=== PATIENT | female | born 1950 ===

== ENCOUNTER 2018-08-30 13:28 | Emergency (ER) | payer OTHER ==
[2018-08-30 13:47] VITALS: BP 148/79; PULSE 79; RESP 20; TEMP 97.7; O2SAT 99
--- NOTE | 2018-08-30 14:56 | C.PDOC ---
History Of Present Illness 68 year old female, with known past medical history of arthritis and osteoporosis, presents to the ED for evaluation of worsening left knee swelling over the past two weeks. Patient has undergone several arthroscopic evaluations in her left knee, and has been advised to follow up with an orthopedist for a total knee replacement. Patient presents to the ED today requesting an XR of the area for her doctor. Patient denies fever, chills, shortness of breath, or recent trauma to the site. Time Seen by Provider: 08/30/18 14:04 Chief Complaint (Nursing): Lower Extremity Problem/Injury History Per: Patient History/Exam Limitations: no limitations Onset/Duration Of Symptoms: Other (two weeks) Current Symptoms Are (Timing): Worse Additional History Per: Patient - Knee Description Of Injury: denies: Fell, Struck With Object, Struck Against Object Past Medical History Reviewed: Historical Data, Nursing Documentation, Vital Signs Vital Signs: Last Vital Signs Temp 97.7 F 08/30/18 13:45 Pulse 79 08/30/18 13:45 Resp 20 08/30/18 13:45 BP 148/79 08/30/18 13:45 Pulse Ox 99 08/30/18 13:45 - Medical History PMH: Hypothyroidism Surgical History: No Surg Hx Family History: States: Unknown Family Hx - Social History Hx Alcohol Use: Yes Hx Substance Use: No - Immunization History Hx Tetanus Toxoid Vaccination: Yes Hx Influenza Vaccination: Yes Hx Pneumococcal Vaccination: Yes Review Of Systems Constitutional: Negative for: Fever, Chills Musculoskeletal: Positive for: Other (left knee swelling, atraumatic ) Physical Exam - Physical Exam Appears: Non-toxic, No Acute Distress, Other (petite female ) Skin: Normal Color, Warm, Dry Extremity: Tenderness (left knee), No Calf Tenderness, Capillary Refill (less than 2 seconds ), Other (left knee is markedly enlarged, effusion to medial distal knee ) Pulses: Left Dorsalis Pedis: Normal, Right Dorsalis Pedis: Normal Neurological/Psych: Normal Speech, Normal Cognition ED Course And Treatment O2 Sat by Pulse Oximetry: 99 (on RA) Pulse Ox Interpretation: Normal Medical Decision Making Medical Decision Making: Progress: Tylenol PO given. Patient is resting comfortably, showing no signs of distress and is stable for discharge. Patient is advised to follow up with orthopedist where she can undergo XR, and that there is no need for additional radiation today. Disposition - Disposition Referrals: Earl Reeves MD [Staff Provider] - Fransisco Powell MD [Staff Provider] - Disposition: HOME/ ROUTINE Disposition Time: 14:54 Condition: GOOD Additional Instructions: Please follow up with orthopedist. Take Ibuprofen or Tylenol for pain. Cold compresses to knee several times a day. Prescriptions: Acetaminophen [Tylenol 325mg tab] 650 mg PO Q4 #50 tab Instructions: Osteoarthritis (DC) Forms: [employer] ([place]), General Discharge Instructions - Clinical Impression Clinical Impression: Chronic pain of left knee - PA / [employer]UST[employer]UC[employer] / Resident Statement MD/DO has reviewed & agrees with the documentation as recorded. - Scribe Statement The provider has reviewed the documentation as recorded by the Scribe (Grace Lundberg) All medical record entries made by the Scribe were at my direction and personally dictated by me. I have reviewed the chart and agree that the record accurately reflects my personal performance of the history, physical exam, medical decision making, and the department course for this patient. I have also personally directed, reviewed, and agree with the discharge instructions and d isposition.
== END 2018-08-30 15:05 | disposition home or self-care (01) ==
LOC: C.ER 13:28
DX: G89.29 Other chronic pain (principal); M25.562 Pain in left knee